=== PATIENT | female | born 1955 | race Caucasian/White ===

== ENCOUNTER 2017-05-18 07:51 | Day surgery (SDC) | payer BC, MEDICARE ==
[~2017-05-18] VITALS: Ht 160 cm; Wt 45.4 kg
[~2017-05-18 07:51] MED LIST: AMBIEN10 MG PO; FLEXERIL10 MG PO; HALDOL5 MG PO; LEXAPRO10 MG PO; MOBIC7.5 MG PO; NORCO 325-5 MG1 TAB PO; PRILOSEC20 MG PO; ULTRAM50 MG PO
== END 2017-05-18 10:25 | disposition short-term general hospital (02) ==
LOC: SURGOP 07:51
PROC: 0DBE8ZZ Excision of Large Intestine, Via Natural or Artificial Opening Endoscopic (ICD-10-PCS; principal; 2017-05-18)
DX: Z12.11 Encounter for screening for malignant neoplasm of colon (principal); D12.6 Benign neoplasm of colon, unspecified; K56.2 Volvulus; K64.8 Other hemorrhoids; J44.9 Chronic obstructive pulmonary disease, unspecified; K21.9 Gastro-esophageal reflux disease without esophagitis; G47.00 Insomnia, unspecified; M19.90 Unspecified osteoarthritis, unspecified site; F41.9 Anxiety disorder, unspecified; F32.9 Major depressive disorder, single episode, unspecified; F17.210 Nicotine dependence, cigarettes, uncomplicated; Z80.0 Family history of malignant neoplasm of digestive organs; Z88.0 Allergy status to penicillin; Z79.82 Long term (current) use of aspirin; Z79.899 Other long term (current) drug therapy
CPT/HCPCS: J2250